=== PATIENT | male | born 1940 | race Hispanic/Latino ===

== ENCOUNTER → 2018-07-03 | Outpatient (CLI) | payer MEDICARE | END | disposition home or self-care (01) | LOC: RAH 09:22 | PROVIDERS: ATTEND Family Medicine | DX: M47.816 Spondylosis without myelopathy or radiculopathy, lumbar region (principal); M79.605 Pain in left leg | CPT/HCPCS: 72100; 73562 ==

== ENCOUNTER 2020-05-09 15:54 | Inpatient (IN) | payer MEDICARE ==
[~2020-05-09] VITALS: Ht 170.2 cm; Wt 72.8 kg
[2020-05-09 17:26] LABS: ABG BASE EXCESS -3.9 mmol/L (-2.0-3.0); ABG HCO3 19.7 mmol/L (21.0-28.0); ABG OXYGEN SATURATION 97.1 % (95.0-99.0); ABG PCO2 32 mmHg (35-48)
[2020-05-09] MEDS ORDERED: MORPHINE SULFATE 4 MG/1ML SYG ONE (18:08)
[2020-05-09] MEDS ORDERED: ONDANSETRON HCL 4 MG/2 ML VIAL ONE (18:08)
[2020-05-09 18:51] LABS: BASOPHILS % (AUTO) 0.5 % (0.0-5.0); EOSINOPHILS % (AUTO) 0.4 % (0.0-8.0); HEMATOCRIT 42.3 % (42-54); LYMPHOCYTES % (AUTO) 11.9 % (21.0-51.0); MEAN CORPUSCULAR HEMOGLOBIN 31.7 pg (27.0-33.0); MEAN CORPUSCULAR HGB CONC 32.9 g/dL (32.0-36.0); MEAN CORPUSCULAR VOLUME 96.6 fL (79-99); MONOCYTES % (AUTO) 4.7 % (3.0-13.0); NEUTROPHILS % (AUTO) 82.1 % (40.0-77.0); PLATELET COUNT (AUTO) 280 K/uL (130-400); RED BLOOD CELL COUNT(AUTO) 4.38 MIL/uL (4.50-6.20); WHITE BLOOD COUNT (AUTO) 13.4 K/uL (4.8-10.8)
[2020-05-09] MEDS: LACTATED RINGERS 1000ML 1,000 ML IV SCH (19:00)
[2020-05-09 19:07] LABS: INR 0.96 (0.85-1.15); PARTIAL THROMBOPLASTIN TIME 25.8 SEC (26.3-35.5); POTASSIUM 4.4 mmol/L (3.5-5.1); PROTHROMBIN TIME 10.4 SEC (9.6-11.6)
[2020-05-09 19:11] LABS: ALBUMIN 3.5 g/dL (3.5-5.0); BILIRUBIN,TOTAL 0.6 mg/dL (0.2-1.0)
[2020-05-09] MEDS ORDERED: MORPHINE SULFATE 2 MG/ML 1ML SYG ONE ×2 (19:54→22:06)
[2020-05-09 21:34] LABS: APPEARANCE,URINE Clear (CLEAR); BILIRUBIN,URINE Negative (NEGATIVE); COLOR,URINE Yellow (YELLOW); GLUCOSE, URINE (UA) Negative (NEGATIVE); KETONES,URINE Negative (NEGATIVE); LEUKOCYTE ESTERASE ,URINE Negative (NEGATIVE); NITRATE,URINE Negative (NEGATIVE); OCCULT BLOOD,URINE Negative (NEGATIVE); PROTEIN,URINE Negative (NEGATIVE); UROBILINOGEN,URINE 0.2 mg/dL (0.2-1.0)
[2020-05-09 23:05] VITALS: BP 155/98
[2020-05-10] MEDS: MORPHINE SULFATE 2 MG/ML 1ML SYG IM PRN ×3 (00:12→04:12)
[2020-05-10 04:17] VITALS: BP 152/78
[2020-05-10 05:34] LABS: BASOPHILS % (AUTO) 0.4 % (0.0-5.0); EOSINOPHILS % (AUTO) 0.7 % (0.0-8.0); HEMATOCRIT 38.2 % (42-54); LYMPHOCYTES % (AUTO) 19.1 % (21.0-51.0); MEAN CORPUSCULAR HEMOGLOBIN 31.6 pg (27.0-33.0); MEAN CORPUSCULAR HGB CONC 32.5 g/dL (32.0-36.0); MEAN CORPUSCULAR VOLUME 97.4 fL (79-99); MONOCYTES % (AUTO) 9.4 % (3.0-13.0); NEUTROPHILS % (AUTO) 69.9 % (40.0-77.0); PLATELET COUNT (AUTO) 266 K/uL (130-400); RED BLOOD CELL COUNT(AUTO) 3.92 MIL/uL (4.50-6.20); WHITE BLOOD COUNT (AUTO) 11.4 K/uL (4.8-10.8)
[2020-05-10 05:53] LABS: ALBUMIN 3.1 g/dL (3.5-5.0); BILIRUBIN,TOTAL 0.6 mg/dL (0.2-1.0); CREATININE 1.7 mg/dL (0.5-1.5); POTASSIUM 4.9 mmol/L (3.5-5.1); TOTAL PROTEIN, SERUM 7.2 g/dL (6.0-8.3)
[2020-05-10] MEDS: MORPHINE SULFATE 2 MG/ML 1ML SYG IV PRN ×5 (06:43→20:20)
[2020-05-10 07:51] VITALS: BP 142/75
[2020-05-10] MEDS: LACTATED RINGERS 1000ML 1,000 ML IV SCH ×2 (08:20→17:36)
--- NOTE | 2020-05-10 08:30 | NUR ---
NPO STATUS CALLED DR. QUINTANA TO INFORM THAT PATIENT IS NPO. PENDING A 2D ECHO AND PFT TEST. ASKED FOR MD'S PLAN FOR SURGERY IN ORDER TO KNOW IF PATIENT SHOULD REMAIN NPO. DR. QUINTANA REPLIED OKAY TO FEED PATIENT TODAY AND PLAN FOR SURGERY TOMORROW.
--- NOTE | 2020-05-10 09:25 | NUR ---
DVT PROPHYLAXIS CALLED Elizabeth MORENO NP FOR DR. HONEYCUTT TO OBTAIN ORDERS FOR DVT PROPHYLAXIS. OBTAINED ORDERS TO PLACED SCDS VIA TELEPHONE.
[2020-05-10] MEDS ORDERED: CEFAZOLIN SODIUM 1 GM VIAL IVP PRN (09:30)
[2020-05-10] MEDS ORDERED: KETOROLAC TROMETHAMINE 15MG/ML IV PRN (10:00)
[2020-05-10] MEDS ORDERED: ONDANSETRON HCL 4 MG/2 ML VIAL IVP PRN (10:00)
[2020-05-10] MEDS ORDERED: IPRATROPIUM/ALBUTEROL SULFATE 3 ML SOLUTION IH PRN ×2 (10:00→15:00)
[2020-05-10] MEDS ORDERED: LABETALOL 20 MG/4 ML DISP.SYRIN IV PRN (10:00)
--- NOTE | 2020-05-10 10:30 | NUR ---
HOME MEDICATIONS RECEIVED PHONE CALL FROM PATIENTS DAUGHTER, TRENTON DALTON [phone]. TOLD ME SHE WOULD TELL ME PATIENTS HOME MEDICATIONS OVER THE PHONE, WHICH I ENTERED IN [place] FOR MEDICATION RECONCILIATION. I ASKED F.Giancarlo. IF SHE KNEW WHEN WAS THE LAST TIME PATIENT TOOK HIS HOME MEDICATIONS AND SHE REPLIED "ONLY HE [PATIENT] WOULD BE ABLE TO TELL YOU THE LAST TIME HE TOOK HIS MEDICATIONS." AFTER THE PHONE CALL WITH Giuseppe, I WENT INTO PATIENTS ROOM TO ASK HIM ABOUT HOME MEDICATIONS. PATIENT REPORTS THAT HE DOES NOT TAKE TRAZODONE ANYMORE FOR SOME TIME NOW. PATIENT THEN CONTINUED THAT HE ONLY TAKES TWO HOME MEDICATIONS [AMLODIPINE AND PLAVIX]. I ASKED PATIENT IF HE REMEMBERED THE LAST TIME HE TOOK HIS MEDICATIONS AND PATIENT REPLIED THAT HE HAS NOT TAKEN HIS MEDICATIONS FOR 5 DAYS BECAUSE HE HAS BEEN UNABLE TO OBTAIN REFILLS FROM HIS PRIMARY MD FOR HIS PRESCRIPTIONS FOR PLAVIX AND AMLODIPINE.
[2020-05-10] MEDS ORDERED: TRAZ-185 PO (10:59)
[2020-05-10] MEDS ORDERED: AMLO-258 PO (10:59)
[2020-05-10] MEDS ORDERED: CLOP75TA32 PO (10:59)
--- NOTE | 2020-05-10 11:00 | NUR ---
DR. MARIANO CARDONA MD SPOKE TO PATIENT ABOUT PLAN FOR SURGERY FOR TOMORROW. INFORMED DR. QUINTANA REGARDING HOME MEDICATION PLAVIX, BUT THAT PATIENT REPORTS THAT HE HAS NOT TAKEN IT FOR [address] QUINTANA REPLIED THAT HE WOULD STILL PROCEED FOR SURGERY TOMORROW AND PATIENT MAY RESUME HOME MEDICATION PLAVIX AFTER SURGERY.
--- NOTE | 2020-05-10 11:05 | NUR ---
HOME MEDS PENDING RECONCILIATION INFORMED Elizabeth MORENO NP FOR DR. HONEYCUTT THAT I ENTERED HOME MEDICATIONS AND PATIENT REPORT OF LAST TIME HE TOOK HOME MEDICATIONS. ALSO INFORMED THAT DR. QUINTANA STATES PATIENT CAN RESUME PLAVIX AFTER SURGERY.
[2020-05-10 12:08] VITALS: BP 131/69
--- NOTE | 2020-05-10 14:12 | NUR ---
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 BYRON MACK MD MELTER OPERATOR FOR [facility]. SPOKE TO NATTY OF [facility] ANSWERING SERVICE REGARDING CONSULT.
--- NOTE | 2020-05-10 16:00 | NUR ---
DR. Ayaz MACK SPOKE TO MD VIA TELEPHONE REGARDING CONSULT. MD TOLD ME HE WANTED TO SPEAK TO ORDERING MD REGARDING CONSULT. INFORMED DR. MACK THAT Elizabeth MORENO NP FOR DR. HONEYCUTT PLACED ORDER FOR CONSULT. DR. Ayaz MACK TOLD ME TO HAVE Elizabeth MORENO NP CALL HIM ON HIS PHONE. I THEN CALLED Elizabeth MORENO NP TO INFORM HER THAT DR. Ayaz MACK WANTED TO SPEAK WITH HER AND THEN I PROVIDED HER WITH DR. Ayaz MACK'S PHONE NUMBER.
[2020-05-10 16:30] VITALS: BP 119/68
--- NOTE | 2020-05-10 18:59 | NUR ---
D/C PLAN CM spoke to patient's daughter named Barbara regarding d/c planning. States patient lives with her and has provider about 27 hrs/week. Denies having any DME at home. CM offered short term snf/rehab. Daughter prefers to d/c home with home health for PT. Agreeable to short term snf/rehab if patient does not progress well. CM to f/u. Addendum: 05/10/20 at 1901 by JOSE RYAN CM Amended: Links added.
[2020-05-10] MEDS: KETOROLAC TROMETHAMINE 30MG/ML IV PRN (19:37)
[2020-05-10 20:17] VITALS: BP 128/70
[2020-05-10] MEDS: METHYLPREDNISOLONE SOD SUCC 40MG/ML 1ML IVP SCH (20:19)
[2020-05-10 23:57] VITALS: BP 118/63
[2020-05-11] VITALS (25 sets, daily range): BP systolic 103–157; BP diastolic 52–101
[2020-05-11] MEDS: MORPHINE SULFATE 2 MG/ML 1ML SYG IV PRN ×5 (01:36→16:49)
[2020-05-11] MEDS: METHYLPREDNISOLONE SOD SUCC 40MG/ML 1ML IVP SCH ×2 (07:47→20:08)
[2020-05-11] MEDS: LACTATED RINGERS 1000ML 1,000 ML IV SCH ×2 (07:48→20:08)
[2020-05-11] MEDS: PANTOPRAZOLE 40 MG/VIAL IV SCH (09:59)
[2020-05-11] MEDS: AMLODIPINE BESYLATE 5 MG TAB PO SCH (09:59)
[2020-05-11] MEDS ORDERED: ROCURONIUM 10MG/1ML SYR 10 MG/ML ML ONE ×2 (13:32→14:08)
[2020-05-11] MEDS ORDERED: PROPOFOL 10 MG/ML 20ML VIAL IV ONE (13:32)
[2020-05-11] MEDS ORDERED: MIDAZOLAM HCL 1 MG/ML 2ML VIAL ONE (13:32)
[2020-05-11] MEDS ORDERED: FENTANYL CITRATE PF 50 MCG/1 ML 2ML VIAL ONE (14:09)
--- NOTE | 2020-05-11 14:17 | NUR ---
RD NOTIFICATION Pt admitted with Intertochanteric fracture. Pt with improving PO intake. LBM 05/10. Pt also pending surgery as per EMR. Morphine, Protonix, Lactated Ringer's, Solu-medrol, Toradol medications in place as per EMR. Improving renal labs. Decrease protein status. Recommend Ensure QD RD to continue to monitor. Please notify as additional nutrition concerns arise. Thank you. Addendum: 05/11/20 at [address] Amended: Links added.
[2020-05-11] MEDS ORDERED: DEXAMETHASONE SOD PHOSPHATE 10MG/ML 1ML VIAL ONE (14:35)
[2020-05-11] MEDS ORDERED: ONDANSETRON HCL 4 MG/2 ML VIAL ONE (14:36)
[2020-05-11] MEDS ORDERED: GLYCOPYRROLATE 1 MG/5 ML SYRINGE ONE (14:37)
[2020-05-11] MEDS ORDERED: NEOSTIGMINE 5MG/5ML SYR IV ONE (14:38)
[2020-05-11] MEDS ORDERED: ROPIVACAINE 0.5% 5MG/ML 30ML IJ ONE (14:47)
[2020-05-11] MEDS ORDERED: SUGAMMADEX SODIUM 200 MG/2 ML VIAL IV ONE (15:18)
--- NOTE | 2020-05-11 16:00 | NUR ---
DAUGHTER TRENTON AT BEDSIDE. 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 VERBAL FOR [facility], ADVISED HER THAT PATIENT'S INSURANCE IN NETWORK WITH [facility] AND EXPERIENCED WITH [facility]TH[facility]. VERBALIZED UNDERSTANDING
[2020-05-11] MEDS: KETOROLAC TROMETHAMINE 30MG/ML IV PRN (19:31)
[2020-05-11] MEDS: HYDROMORPHONE 1 MG/1 ML AMP IVP PRN ×3 (20:56→23:28)
[2020-05-11] MEDS ORDERED: MORPHINE SULFATE 2 MG/ML 1ML SYG IVP PRN (23:30)
[2020-05-12] VITALS: BP 119/69
[2020-05-12] MEDS: HYDROMORPHONE 1 MG/1 ML AMP IVP PRN ×4 (00:42→04:33)
[2020-05-12] MEDS: MORPHINE SULFATE 2 MG/ML 1ML SYG IVP PRN ×4 (03:11→23:54)
[2020-05-12 04:00] VITALS: BP 125/67
[2020-05-12 05:05] LABS: BASOPHILS % (AUTO) 0.1 % (0.0-5.0); HEMATOCRIT 33.9 % (42-54); LYMPHOCYTES % (AUTO) 5.1 % (21.0-51.0); MEAN CORPUSCULAR HEMOGLOBIN 31.8 pg (27.0-33.0); MEAN CORPUSCULAR HGB CONC 32.7 g/dL (32.0-36.0); MEAN CORPUSCULAR VOLUME 97.1 fL (79-99); MONOCYTES % (AUTO) 3.9 % (3.0-13.0); NEUTROPHILS % (AUTO) 90.3 % (40.0-77.0); PLATELET COUNT (AUTO) 245 K/uL (130-400); RED BLOOD CELL COUNT(AUTO) 3.49 MIL/uL (4.50-6.20); RED CELL DISTRIBUTION WIDTH 13.6 % (11.0-15.5); WHITE BLOOD COUNT (AUTO) 16.8 K/uL (4.8-10.8)
[2020-05-12 05:22] LABS: ALBUMIN 2.5 g/dL (3.5-5.0); BILIRUBIN,TOTAL 0.3 mg/dL (0.2-1.0); CREATININE 1.8 mg/dL (0.5-1.5); MAGNESIUM 1.7 mg/dL (1.80-2.40); PHOSPHORUS 3.2 mg/dL (2.5-4.9); POTASSIUM 4.6 mmol/L (3.5-5.1); TOTAL PROTEIN, SERUM 6.5 g/dL (6.0-8.3)
[2020-05-12 08:00] VITALS: BP 131/73
[2020-05-12] MEDS: PANTOPRAZOLE 40 MG/VIAL IV SCH (08:45)
[2020-05-12] MEDS: METHYLPREDNISOLONE SOD SUCC 40MG/ML 1ML IVP SCH ×2 (08:45→20:31)
[2020-05-12] MEDS: AMLODIPINE BESYLATE 5 MG TAB PO SCH (08:46)
[2020-05-12 12:00] VITALS: BP 97/54
--- NOTE | 2020-05-12 12:39 | NUR ---
Per patient report his pcp is Dr. Savage Packer. He reports he resides alone in a stable home environment and lives in the same property as his daughter/family. He reports he has good family support system in place. He utilizes provider services(3/4 hours daily) to assist with his ADLs as needed. no home health services. His preferred pharmacy is [facility]([place]).He reports he has no concerns with obtaining his medications. He states he either picks up his medications and when unable to [facility] delivers his home medications to his home. He also has Medicaid benefits and denies any financial concerns w/obtaining his home medications. dc plan is home with family support system in place. no other needs identified @ this time[facility] [place] Addendum: 05/12/20 at 1246 by ANDREZ SHARPE Amended: Links added.
[2020-05-12] MEDS: LACTATED RINGERS 1000ML 1,000 ML IV SCH (13:40)
[2020-05-12] MEDS: CLOPIDOGREL BISULFATE 75 MG TAB PO SCH (14:35)
[2020-05-12 16:00] VITALS: BP 110/54
--- NOTE | 2020-05-12 18:48 | NUR ---
paitenrt voiding on own already
[2020-05-12 20:08] VITALS: BP 119/61
[2020-05-12] MEDS: APIXABAN 2.5 MG TABLET PO SCH (20:31)
[2020-05-12] MEDS: KETOROLAC TROMETHAMINE 30MG/ML IV PRN (20:32)
[2020-05-12] MEDS ORDERED: APIX2.5T PO (22:16)
[2020-05-13 00:08] VITALS: BP 130/63
[2020-05-13] MEDS: LACTATED RINGERS 1000ML 1,000 ML IV SCH ×2 (03:00→16:20)
[2020-05-13] MEDS: MORPHINE SULFATE 2 MG/ML 1ML SYG IVP PRN (03:55)
[2020-05-13 04:08] VITALS: BP 129/66
[2020-05-13 05:56] LABS: BASOPHILS % (AUTO) 0.1 % (0.0-5.0); HEMATOCRIT 31.9 % (42-54); LYMPHOCYTES % (AUTO) 5.5 % (21.0-51.0); MEAN CORPUSCULAR HEMOGLOBIN 31.1 pg (27.0-33.0); MEAN CORPUSCULAR HGB CONC 32.6 g/dL (32.0-36.0); MEAN CORPUSCULAR VOLUME 95.5 fL (79-99); MONOCYTES % (AUTO) 5.2 % (3.0-13.0); NEUTROPHILS % (AUTO) 88.8 % (40.0-77.0); PLATELET COUNT (AUTO) 230 K/uL (130-400); RED BLOOD CELL COUNT(AUTO) 3.34 MIL/uL (4.50-6.20); RED CELL DISTRIBUTION WIDTH 13.6 % (11.0-15.5); WHITE BLOOD COUNT (AUTO) 13.9 K/uL (4.8-10.8)
[2020-05-13 06:09] LABS: CREATININE 1.9 mg/dL (0.5-1.5)
[2020-05-13 08:20] VITALS: BP 122/71
[2020-05-13] MEDS ORDERED: CLOPIDOGREL BISULFATE 75 MG TAB PO SCH (09:00)
[2020-05-13] MEDS: SODIUM CHLORIDE 0.9% 1000ML 1,000 ML IV SCH ×2 (09:23→20:52)
[2020-05-13] MEDS: CLOPIDOGREL BISULFATE 75 MG TAB PO SCH (09:23)
[2020-05-13] MEDS: PANTOPRAZOLE 40 MG/VIAL IV SCH (09:23)
[2020-05-13] MEDS: APIXABAN 2.5 MG TABLET PO SCH ×2 (09:24→20:39)
[2020-05-13] MEDS: AMLODIPINE BESYLATE 5 MG TAB PO SCH (09:24)
[2020-05-13] MEDS: ACETAMINOPHEN-CODEINE 300/30MG TAB PO PRN ×2 (09:24→17:50)
--- NOTE | 2020-05-13 10:23 | NUR ---
paged DR Hendricks. Pending Pain Medication RX.
--- NOTE | 2020-05-13 11:08 | NUR ---
dr santoro called to his cellphone number. no answer. voice mail left.
--- NOTE | 2020-05-13 11:12 | NUR ---
DR Hendricks Called back. I INFORMED HIM THAT THE PATIENT NEEDS TO PAIN RX TO BE ABLE TO GO HOME. DR HENDRICKS STATED THAT THE ADMITTING MD CAN WRITE THE PRESCRIPTION FOR PAIN. HOWEVER, RONA STATED THAT SHE IS NOT GOING TO GIVE PATIENT A PAIN RX BECAUSE SHE IS NOT GOING TO FOLLOW UP WITH HIM. DR HENDRICKS IS GOING TO CALL BACK WITH INSTRUCTIONS.
[2020-05-13 11:21] VITALS: BP 108/62
[2020-05-13 16:57] LABS: CREATININE 1.8 mg/dL (0.5-1.5); POTASSIUM 4.6 mmol/L (3.5-5.1)
[2020-05-13 17:06] VITALS: BP 113/53
[2020-05-13 20:46] VITALS: BP 125/58
[2020-05-14 00:09] VITALS: BP 119/61
[2020-05-14 03:52] VITALS: BP 120/65
[2020-05-14] MEDS: LACTATED RINGERS 1000ML 1,000 ML IV SCH (05:12)
[2020-05-14 06:13] LABS: HEMATOCRIT 32.5 % (42-54); MEAN CORPUSCULAR HEMOGLOBIN 31.7 pg (27.0-33.0); MEAN CORPUSCULAR HGB CONC 32.9 g/dL (32.0-36.0); MEAN CORPUSCULAR VOLUME 96.2 fL (79-99); RED BLOOD CELL COUNT(AUTO) 3.38 MIL/uL (4.50-6.20); RED CELL DISTRIBUTION WIDTH 13.9 % (11.0-15.5); WHITE BLOOD COUNT (AUTO) 10.7 K/uL (4.8-10.8)
[2020-05-14 06:29] LABS: CREATININE 1.8 mg/dL (0.5-1.5); POTASSIUM 4.4 mmol/L (3.5-5.1)
[2020-05-14] MEDS: ACETAMINOPHEN-CODEINE 300/30MG TAB PO PRN ×2 (07:43→14:46)
[2020-05-14 07:59] VITALS: BP 114/62
--- NOTE | 2020-05-14 08:30 | NUR ---
PATIENTS FAMILY SPOKE TO PATIENTS DAUGHTER, Mimi DALTON TO INFORM OF PATIENT STATUS AND POSSIBLE PLAN FOR DISCHARGE HOME WITH HOME HEALTH TODAY AFTER PRIMARY MD ROUNDS AND DECIDES TO DISCHARGE PATIENT TODAY. TOLD ME THAT SHE COULD COME BUSINESS PLANNING DIRECTOR PATIENT AFTER SHE GET OUT OF WORK.
[2020-05-14] MEDS: MORPHINE SULFATE 2 MG/ML 1ML SYG IVP PRN (09:29)
--- NOTE | 2020-05-14 10:00 | NUR ---
[facility] HOME HEALTH REPORT GIVEN TO GOPAL OF [facility] BECAUSE MARINE EQUIPMENT TEST ENGINEER SHARLA TOLD I WOULD HAVE TO GIVE REPORT NOW BECAUSE DR. QUINTANA WAS LEAVING [facility] AND I WOULD NEED TO GIVE REPORT JUST IN CASE [facility] HAD QUESTIONS FOR DR. QUINTANA.
[2020-05-14] MEDS: APIXABAN 2.5 MG TABLET PO SCH (10:01)
[2020-05-14] MEDS: AMLODIPINE BESYLATE 5 MG TAB PO SCH (10:01)
[2020-05-14] MEDS: PANTOPRAZOLE 40 MG/VIAL IV SCH (10:01)
[2020-05-14] MEDS: CLOPIDOGREL BISULFATE 75 MG TAB PO SCH ×2 (10:02→10:38)
[2020-05-14 11:29] VITALS: BP 103/57
--- NOTE | 2020-05-14 14:05 | NUR ---
RD FOLLOW UP Pt s/p procedure. Pt tolerating foods and Ensure nutritional supplement, as per RN. Pt also pending discharge. Monitored labs: Na 134, BUN 34, Cr 1.8, GFR 39, Ca 8.4, Alb 2.5. Plavix, Eliquis, Norvasc, NaCl, Morphine medications in place. Recommend Ensure BID RD to continue to monitor. Please notify as additional nutrition concerns arise. Thank you. Addendum: 05/14/20 at [address] Amended: Links added.
--- NOTE | 2020-05-14 15:38 | NUR ---
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
[2020-05-14 16:08] VITALS: BP 118/52
== END 2020-05-14 17:40 | disposition home health service (06) | DRG 481 ==
LOC: EDH 15:54 → OBSVTOIN 17:00 → EDHIP 17:00 → 3AH 22:53
PROVIDERS: ADMIT Internal Medicine Critical Care Medicine; ATTEND Internal Medicine Critical Care Medicine
PROC: 0QH736Z Insertion of Intramedullary Internal Fixation Device into Left Upper Femur, Percutaneous Approach (ICD-10-PCS; principal; 2020-05-11 13:31)
PROC: 3E0T3BZ Introduction of Anesthetic Agent into Peripheral Nerves and Plexi, Percutaneous Approach (ICD-10-PCS; 2020-05-11 13:31)
DX: S72.142A Displaced intertrochanteric fracture of left femur, initial encounter for closed fracture (principal); I13.0 Hypertensive heart and chronic kidney disease with heart failure and stage 1 through stage 4 chronic kidney disease, or unspecified chronic kidney disease; D68.59 Other primary thrombophilia; N17.9 Acute kidney failure, unspecified; W01.0XXA Fall on same level from slipping, tripping and stumbling without subsequent striking against object, initial encounter; J44.9 Chronic obstructive pulmonary disease, unspecified; Z20.828 Contact with and (suspected) exposure to other viral communicable diseases; N18.30 Chronic kidney disease, stage 3 unspecified; F17.200 Nicotine dependence, unspecified, uncomplicated; I50.9 Heart failure, unspecified; R54 Age-related physical debility; I25.10 Atherosclerotic heart disease of native coronary artery without angina pectoris; I77.1 Stricture of artery; K43.5 Parastomal hernia without obstruction or gangrene; Z93.3 Colostomy status; Y92.009 Unspecified place in unspecified non-institutional (private) residence as the place of occurrence of the external cause; Y93.89 Activity, other specified; Y99.8 Other external cause status; Z90.49 Acquired absence of other specified parts of digestive tract; Z79.02 Long term (current) use of antithrombotics/antiplatelets; Z79.01 Long term (current) use of anticoagulants; Z79.899 Other long term (current) drug therapy
CPT/HCPCS: 36415; 36600; 70450; 71045; 73502; 73503; 73560; 80048; 80053; 81003; 82550; 82803; 82948; 83735; 83880; 84100; 84484; 85025; 85027; 85610; 85730; 87426; 93005; 93306; 93926; 93971; 97039; C9113; G0378; J0690; J1100; J1170; J1885; J2250; J2270; J2405; J2704; J2710; J2795; J2920; J3010; J3490; J7120

== ENCOUNTER 2022-08-26 10:57 | Observation (INO) | payer MEDICARE ==
[~2022-08-26] VITALS: Ht 170.2 cm; Wt 56.0 kg
[~2022-08-26 10:57] MED LIST: AMLO-258 PO; APIX2.5T PO; CLOP75TA32 PO
[2022-08-26] MEDS ORDERED: 0.9% NACL 500ML IV.SOLN 500 ML IV ONE (12:00)
[2022-08-26] MEDS ORDERED: FOLI1 PO (12:32)
[2022-08-26] MEDS ORDERED: AMLO-258 PO (12:32)
[2022-08-26] MEDS ORDERED: MUPI22OI2 TP (12:32)
[2022-08-26] MEDS ORDERED: GABA600T10 PO (12:32)
[2022-08-26] MEDS ORDERED: BUSP5TAB3 PO (12:32)
[2022-08-26] MEDS ORDERED: ERGO500093 PO (12:32)
[2022-08-26] MEDS ORDERED: CYAN10007 IJ (12:32)
[2022-08-26] MEDS ORDERED: SUCR1TAB28 PO (12:32)
[2022-08-26] MEDS ORDERED: HYDR-4060 PO (12:32)
[2022-08-26] MEDS ORDERED: ALEN70TA85 PO (12:32)
[2022-08-26] MEDS ORDERED: LOSA25TA41 PO (12:32)
[2022-08-26] MEDS ORDERED: CLOP-31 PO (12:32)
[2022-08-26] MEDS ORDERED: MAGN400C PO (12:32)
[2022-08-26] MEDS ORDERED: DAPA10TA PO (12:32)
[2022-08-26] MEDS ORDERED: ICOS1CAP PO (12:32)
[2022-08-26] MEDS ORDERED: TRAZ-185 PO (12:32)
[2022-08-26 12:40] LABS: ALBUMIN 3.7 g/dL (3.5-5.0); CREATININE 1.8 mg/dL (0.5-1.5); MAGNESIUM 1.8 mg/dL (1.80-2.40); POTASSIUM 3.9 mmol/L (3.5-5.1); THYROID STIMULATING HORMONE 1.12 uIU/mL (0.36-3.74); TOTAL PROTEIN, SERUM 8.5 g/dL (6.0-8.3)
[2022-08-26 12:44] LABS: HEMATOCRIT 44.3 % (42-54); MEAN CORPUSCULAR HEMOGLOBIN 31.3 pg (27.0-33.0); MEAN CORPUSCULAR HGB CONC 34.1 g/dL (32.0-36.0); MEAN CORPUSCULAR VOLUME 91.9 fL (79-99); RED BLOOD CELL COUNT(AUTO) 4.82 MIL/uL (4.50-6.20); RED CELL DISTRIBUTION WIDTH 13.4 % (11.0-15.5); WHITE BLOOD COUNT (AUTO) 7.4 K/uL (4.8-10.8)
[2022-08-26 12:54] LABS: HEMOGLOBIN A1C 5.6 % (4.0-6.0)
[2022-08-26] MEDS: 0.9%NACL 1000ML 1,000 ML IV SCH (14:45)
[2022-08-26 17:06] VITALS: BP 132/69
[2022-08-26 19:52] VITALS: BP 92/47
[2022-08-27] VITALS (7 sets, daily range): BP systolic 102–145; BP diastolic 64–82
[2022-08-27 08:43] LABS: HEMATOCRIT 39.4 % (42-54); MEAN CORPUSCULAR HEMOGLOBIN 30.8 pg (27.0-33.0); MEAN CORPUSCULAR HGB CONC 33.5 g/dL (32.0-36.0); MEAN CORPUSCULAR VOLUME 92.1 fL (79-99); RED BLOOD CELL COUNT(AUTO) 4.28 MIL/uL (4.50-6.20); RED CELL DISTRIBUTION WIDTH 13.5 % (11.0-15.5); WHITE BLOOD COUNT (AUTO) 6.6 K/uL (4.8-10.8)
[2022-08-27 09:00] LABS: ALBUMIN 2.9 g/dL (3.5-5.0); CREATININE 1.7 mg/dL (0.5-1.5); POTASSIUM 3.9 mmol/L (3.5-5.1); TOTAL PROTEIN, SERUM 6.6 g/dL (6.0-8.3)
[2022-08-27] MEDS: 0.9%NACL 1000ML 1,000 ML IV SCH (10:30)
[2022-08-27] MEDS ORDERED: HYDROXYZINE 25 MG TABLET PO ONE (21:30)
[2022-08-27] MEDS ORDERED: ACETAMINOPHEN 325 MG TAB PO PRN ×2 (21:30)
[2022-08-28 03:36] VITALS: BP 145/63
[2022-08-28] MEDS: 0.9%NACL 1000ML 1,000 ML IV SCH (06:04)
[2022-08-28 08:00] VITALS: BP 147/72
[2022-08-28] MEDS ORDERED: CLOPIDOGREL 75MG TAB PO SCH (09:00)
[2022-08-28] MEDS ORDERED: LOSARTAN 25 MG TABLET PO SCH (09:00)
== END 2022-08-28 10:00 | disposition home or self-care (01) ==
LOC: EDH 10:57 → EDHIP 11:29 → INTOOBSV 11:29 → 2AH 17:00
PROVIDERS: ADMIT Internal Medicine; ATTEND Internal Medicine
DX: E86.9 Volume depletion, unspecified (principal); I95.1 Orthostatic hypotension; N17.9 Acute kidney failure, unspecified; I12.9 Hypertensive chronic kidney disease with stage 1 through stage 4 chronic kidney disease, or unspecified chronic kidney disease; N18.30 Chronic kidney disease, stage 3 unspecified; E11.22 Type 2 diabetes mellitus with diabetic chronic kidney disease; E78.5 Hyperlipidemia, unspecified; E87.8 Other disorders of electrolyte and fluid balance, not elsewhere classified; E86.0 Dehydration; Z79.899 Other long term (current) drug therapy; Z98.890 Other specified postprocedural states; Z79.02 Long term (current) use of antithrombotics/antiplatelets
CPT/HCPCS: 93306; 96361 ×2; 96360; 71045; 83036; 84443; 83735; 80053 ×2; 83880; 85027 ×2; 36415 ×2; 97161; 97039 ×2; G0378

== ENCOUNTER 2023-11-11 20:08 | Emergency (ER) | payer MEDICARE ==
[~2023-11-11] VITALS: Ht 149.9 cm; Wt 48.1 kg
[~2023-11-11 20:08] MED LIST changes: +ALEN70TA85 PO; -AMLO-258 PO; -APIX2.5T PO; +BUSP5TAB3 PO; -CLOP75TA32 PO; +CYAN1000I IM; +FOLI1 PO; +ICOS1CAP PO; +MAGN400C PO; +SUCR1TAB PO; +TRAZ-185 PO
[2023-11-11 20:41] LABS: BASOPHILS # (AUTO) 0.05 K/uL (0.00-0.20); BASOPHILS % (AUTO) 0.6 % (0.0-5.0); EOSINOPHILS # (AUTO) 0.09 K/uL (0.00-0.70); EOSINOPHILS % (AUTO) 1.1 % (0.0-8.0); HEMATOCRIT 35.2 % (42-54); IMMATURE GRANULOCYTE ABSOLUTE 0.03 K/uL (0-1); MEAN CORPUSCULAR HEMOGLOBIN 30.4 pg (27.0-33.0); MEAN CORPUSCULAR HGB CONC 32.4 g/dL (32.0-36.0); MEAN CORPUSCULAR VOLUME 93.9 fL (79-99); MONOCYTES # (AUTO) 0.6 K/uL (0.1-1.0); MONOCYTES % (AUTO) 7.3 % (3.0-13.0); NEUTROPHILS # (AUTO) 5.7 K/uL (1.8-7.7); NEUTROPHILS % (AUTO) 66.6 % (40.0-77.0); PLATELET COUNT (AUTO) 238 K/uL (130-400); RED BLOOD CELL COUNT(AUTO) 3.75 MIL/uL (4.50-6.20); RED CELL DISTRIBUTION WIDTH 14.8 % (11.0-15.5); WHITE BLOOD COUNT (AUTO) 8.5 K/uL (4.8-10.8)
[2023-11-11 20:50] LABS: INR 0.96 (0.85-1.15); PROTHROMBIN TIME 11.4 SEC (9.6-11.6)
[2023-11-11 20:52] LABS: PARTIAL THROMBOPLASTIN TIME 29.5 SEC (26.3-35.5)
[2023-11-11 20:53] LABS: CREATININE 2.2 mg/dL (0.5-1.3); POTASSIUM 3.8 mmol/L (3.5-5.1)
[2023-11-11] MEDS: MORPHINE 2 MG SYG IVP ONE (21:25)
[2023-11-11 21:51] VITALS: BP 137/67; PULSE 56; RESP 16; O2SAT 97
[2023-11-11] MEDS: ACETAMINOPHEN WITH CODEINE 1 TAB TAB PO ONE (21:55)
[2023-11-11] MEDS ORDERED: ACET-2079 PO (22:05)
== END 2023-11-11 22:49 | disposition home or self-care (01) ==
LOC: EDH 20:08
DX: I73.9 Peripheral vascular disease, unspecified (principal); M79.661 Pain in right lower leg; I12.9 Hypertensive chronic kidney disease with stage 1 through stage 4 chronic kidney disease, or unspecified chronic kidney disease; N18.9 Chronic kidney disease, unspecified
CPT/HCPCS: 99285; 80048; 85025; 85610; 85730; 36415; 93970; 93925; 96374; J2270

== ENCOUNTER → 2023-11-15 | Outpatient (CLI) | payer MEDICARE ==
[~2023-11-15] MED LIST changes: +ACET-2079 PO
== END | disposition home or self-care (01) ==
LOC: SHCH 07:40
PROVIDERS: ATTEND Internal Medicine Cardiovascular Disease
DX: I87.2 Venous insufficiency (chronic) (peripheral) (principal); I87.1 Compression of vein
CPT/HCPCS: 93970